=== PATIENT | female | born 2000 | race Caucasian/White ===

== ENCOUNTER 2018-01-16 16:01 | Emergency (ER) | payer MEDICAID, OTHER ==
[~2018-01-16] VITALS: Ht 162.6 cm; Wt 69.4 kg
[2018-01-16 16:01] VITALS: BP 114/61
[2018-01-16] MEDS ORDERED: IBUPROFEN 600 MG TABLET PO ONE ×2 (16:46→17:00)
== END 2018-01-16 18:06 | disposition home or self-care (01) ==
LOC: ER 16:05
DX: S62.310A Displaced fracture of base of second metacarpal bone, right hand, initial encounter for closed fracture (principal); W22.8XXA Striking against or struck by other objects, initial encounter; Y93.89 Activity, other specified; Y92.89 Other specified places as the place of occurrence of the external cause; Y99.8 Other external cause status
CPT/HCPCS: 73630-TC; A4606; Z7610

== ENCOUNTER 2018-01-26 19:21 | Emergency (ER) | payer MEDICAID, OTHER ==
[~2018-01-26] VITALS: Ht 162.6 cm; Wt 68.0 kg
[2018-01-26 19:21] VITALS: BP 115/64
== END 2018-01-26 20:14 | disposition home or self-care (01) ==
LOC: ER 19:21
DX: S92.332A Displaced fracture of third metatarsal bone, left foot, initial encounter for closed fracture (principal); X58.XXXA Exposure to other specified factors, initial encounter; Y93.89 Activity, other specified; Y92.89 Other specified places as the place of occurrence of the external cause; Y99.8 Other external cause status
CPT/HCPCS: A4606; Z7610

== ENCOUNTER 2018-06-19 09:38 | Emergency (ER) | payer MEDICAID ==
[~2018-06-19] VITALS: Ht 162.6 cm; Wt 65.8 kg
[2018-06-19 09:38] VITALS: BP 121/65
[2018-06-19] MEDS ORDERED: FLUORESCEIN SODIUM OPHTH 1 EA STRIP ONE (10:23)
[2018-06-19] MEDS ORDERED: TETRACAINE HCL/PF 0.5% UD 2 ML BOTTLE ONE (10:24)
[2018-06-19] MEDS ORDERED: TETRACAINE HCL/PF 0.5% UD 2 ML BOTTLE LEFTEYE ONE (10:30)
== END 2018-06-19 10:53 | disposition home or self-care (01) ==
LOC: ER 09:40
DX: H10.32 Unspecified acute conjunctivitis, left eye (principal); J06.9 Acute upper respiratory infection, unspecified
CPT/HCPCS: 99283; A4606; Z7610

== ENCOUNTER 2019-07-09 13:53 | Emergency (ER) | payer MEDICAID ==
[~2019-07-09] VITALS: Ht 162.6 cm; Wt 64.0 kg
[2019-07-09 13:56] VITALS: BP 102/59
--- NOTE | 2019-07-09 14:32 | NUR ---
Patient discharged to home in stable condition. Written and verbal after care instructions given. Patient verbalizes understanding of instruction.
== END 2019-07-09 14:32 | disposition home or self-care (01) ==
LOC: ER 13:56
DX: S06.0X0A Concussion without loss of consciousness, initial encounter (principal); S00.33XA Contusion of nose, initial encounter; W22.8XXA Striking against or struck by other objects, initial encounter; Y93.89 Activity, other specified; Y92.89 Other specified places as the place of occurrence of the external cause; Y99.8 Other external cause status

== ENCOUNTER 2024-12-02 07:31 | Emergency (ER) | payer MEDICAID ==
[~2024-12-02] VITALS: Ht 162.6 cm; Wt 64.0 kg
[2024-12-02 07:47] VITALS: BP 105/60; TEMP 98.3; O2SAT 98
[2024-12-02] MEDS ORDERED: [UNRECOGNIZED DRUG - CODE] TP (09:20)
[2024-12-02] MEDS ORDERED: HYDR-4182 TP (09:20)
[2024-12-02] MEDS ORDERED: CETI-355 PO (09:20)
[2024-12-02] MEDS ORDERED: ERYT3.5O9 EACHEYE (09:20)
== END 2024-12-02 09:26 | disposition home or self-care (01) ==
LOC: ER 07:34
DX: T78.40XA Allergy, unspecified, initial encounter (principal); H05.223 Edema of bilateral orbit; Z60.2 Problems related to living alone; X58.XXXA Exposure to other specified factors, initial encounter